=== PATIENT | female | born 1995 | race Caucasian/White ===

== ENCOUNTER 2017-04-01 08:45 | Inpatient (IN) | payer BC, OTHER ==
[~2017-04-01] VITALS: Ht 157.5 cm; Wt 68.0 kg
--- NOTE | 2017-04-02 00:30 | NUR ---
Pre-admission assessment Patient is a 22-year old, female, seen at intake, AAOx4, no SOB and with slight anxiety noted at this time. Discussed with patient admission policies of the unit. Patient is coherent and able to respond to questions appropriately. Pt is ambulatory with steady gait. Vital signs taken and as follows: AT=949/65, P=82, O2 sat on RA=97%, RR=16, T=98. Pt verbalized instructions and teachings regarding disposal of narcotic and other controlled home meds, unit protocols such as taking of vital signs Q4H and handling and disposal of contraband. Will continue with admission upon pts arrival on the unit.
[2017-04-02 00:45] VITALS: BP 111/65
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
[2017-04-02 01:34] LABS: *URINE HCG, QUAL NEGATIVE (NEGATIVE)
[2017-04-02 01:39] LABS: *AMPHETAMINE, URINE NEGATIVE (NEGATIVE); *BARBITURATE, URINE NEGATIVE (NEGATIVE); *CANNABINOID, URINE POSITIVE (NEGATIVE); *COCCAINE, URINE NEGATIVE (NEGATIVE); *OPIATE, URINE POSITIVE (NEGATIVE); *PHENCYCLIDINE SCREEN,URINE NEGATIVE (NEGATIVE)
[2017-04-02] MEDS ORDERED: LOPERAMIDE HCL 2 MG CAPSULE PO PRN ×2 (02:00)
[2017-04-02] MEDS ORDERED: BUPRENORPHINE HCL 2 MG TAB.SUBL SL PRN (02:00)
[2017-04-02] MEDS: HYDROXYZINE PAMOATE 25 MG CAPSULE PO PRN (02:00)
[2017-04-02] MEDS ORDERED: ACETAMINOPHEN 325 MG TABLET PO PRN (02:00)
[2017-04-02] MEDS ORDERED: MAG HYDROX/AL HYDROX/SIMETH 30 ML LIQUID UDC PO PRN (02:00)
[2017-04-02] MEDS ORDERED: diphenhydrAMINE 50 MG CAPSULE PO PRN (02:00)
[2017-04-02] MEDS ORDERED: MIRALAX 17 GM POWD.PACK PO PRN (02:00)
[2017-04-02] MEDS ORDERED: ONDANSETRON ODT 4 MG TAB.RAPDIS SL PRN (02:00)
[2017-04-02] MEDS ORDERED: ONDANSETRON 4 MG/2 ML VIAL IM PRN (02:00)
[2017-04-02] MEDS ORDERED: CLONIDINE HCL 0.1 MG TABLET PO PRN (02:00)
[2017-04-02] MEDS ORDERED: IBUPROFEN 400 MG TABLET PO PRN (02:00)
[2017-04-02] MEDS ORDERED: DICYCLOMINE HCL 20 MG TABLET PO PRN (02:00)
[2017-04-02] MEDS ORDERED: MAGNESIUM HYDROXIDE 30 ML LIQUID UDC PO PRN (02:00)
--- NOTE | 2017-04-02 02:00 | NUR ---
PRN Administration Pt reports abdominal cramping, feeling anxious and requests aid to help her sleep. Vistaril 50mg PRN, Bentyl 20mg PRN and Benadryl 50mg PRN administered. Safety measures in place. Will continue to monitor.
[2017-04-02] MEDS ORDERED: HYDROXYZINE PAMOATE 25 MG CAPSULE ONE ×2 (02:08→02:09)
[2017-04-02] MEDS ORDERED: diphenhydrAMINE 50 MG CAPSULE ONE (02:09)
[2017-04-02] MEDS ORDERED: DICYCLOMINE HCL 20 MG TABLET ONE (02:09)
[2017-04-02] MEDS ORDERED: HYDR50CA PO (02:47)
[2017-04-02] MEDS ORDERED: GABA-536 PO (02:47)
[2017-04-02] MEDS ORDERED: SERT100T PO (02:47)
[2017-04-02] MEDS ORDERED: OXCA600T5 PO (02:47)
[2017-04-02] MEDS ORDERED: QUET300T2 PO (02:47)
--- NOTE | 2017-04-02 03:00 | NUR ---
PRN Reassessment Pt is sleeping, no s/s of acute distress noted, respirations even/unlabored. Safety measures in place. Will continue to monitor.
[2017-04-02 04:00] VITALS: BP 122/74
--- NOTE | 2017-04-02 04:00 | NUR ---
Vital Signs BP 122/74, pulse 87, resp 16, Spo2 99%, temp 98.1, pain 0/10 COWS deferred d/t pt sleeping to assess while pt is awake as ordered. Safety measures in place, will continue to monitor.
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
--- NOTE | 2017-04-02 07:23 | NUR ---
START OF SHIFT NOTE: Received report from curator zoological museum nurse. Pt is a 22 year old female admitted 04-02-17 for Opiate dependence. Pt is currently on prn meds only. Pt is alert and oriented X4. Color good, skin warm and dry. Respirations even and unlabored. Resting in bed at this time. Safety precautions observed. Call light within reach. Will continue to monitor.
[2017-04-02 08:22] VITALS: BP 104/65
[2017-04-02] MEDS ORDERED: TUBERCULIN,PURIF.PROT.DERIV. 5 TU/0.1 ML TEST ID ONE (09:00)
--- NOTE | 2017-04-02 09:00 | NUR ---
TB test administered LFA
[2017-04-02] MEDS ORDERED: IBUPROFEN 600 MG TABLET PO PRN (09:30)
[2017-04-02] MEDS: MULTIVITAMINS,THERAPEUTIC TABLET PO SCH (09:43)
--- NOTE | 2017-04-02 09:48 | NUR ---
VSS COWS 12 Subutex 4mg sl prn given. c/o body aches, sweating, stomach cramps.
--- NOTE | 2017-04-02 10:40 | NUR ---
Pt states feels much improved after Subutex prn. COWS 7
[2017-04-02 12:00] VITALS: BP 99/60
[2017-04-02] MEDS: BUPRENORPHINE HCL 2 MG TAB.SUBL SL SCH ×3 (12:57→20:05)
--- NOTE | 2017-04-02 12:58 | NUR ---
VSS COWS 5 c/o muscle aches, sweating and stomach cramps. Pt started on 5 day Subutex taper.
[2017-04-02] MEDS: GABAPENTIN 400 MG CAPSULE PO SCH ×2 (14:37→20:04)
[2017-04-02 16:30] VITALS: BP 92/60
--- NOTE | 2017-04-02 18:44 | NUR ---
END OF SHIFT NOTE: Report given to cardiac cath lab radiology technologist nurse. Pt is a 22 year old female admitted 04-02-17 for Opiate dependence. Pt started on 5 day Subutex taper. Tolerating well. . Pt is alert and oriented X4. Color good, skin warm and dry. Respirations even and unlabored. Vital signs have remained stable throughout shift. Last COWS 5 @ 1700. Pt received Subutex 4mg sl prn @ 0945. Resting in bed at this time. Safety precautions observed. Call light within reach.
[2017-04-02 20:00] VITALS: BP 118/73
--- NOTE | 2017-04-02 20:00 | NUR ---
Start of Shift Pt is a 22 year old female admitted for Opiate dependence, placed on 5 day Subutex taper. Pt reported using Heroin via IV 1-4g/daily, last intake of 1/4th of a gram on 04/01/2017. Pt also reported use of methamphetamine and Marijuana. PMH: Anxiety, Major depressive disorder, bipolar, PTSD and Chlamydia (at age 16). NKA, regular diet, fall precautions and full code. Upon assessment, pt presents with anxiety, body/joint aches, lower back aches, skin clammy, respirations even/unlabored, denies SOB/chest pain, denies n/v/d, bowel sounds active x4, abdomen soft. Safety measures in place, call light within reach, side rails up x2, bed locked and in low position. Will continue to monitor.
[2017-04-02] MEDS: OXCARBAZEPINE 300 MG TABLET PO SCH (20:04)
[2017-04-02] MEDS: QUETIAPINE FUMARATE 200 MG TABLET PO SCH (20:04)
[2017-04-03] VITALS: BP 99/58
--- NOTE | 2017-04-03 | NUR ---
Vital Signs BP 99/58, pulse 85, resp 16, Spo2 98%, temp 98.1, pain 0/10 COWS deferred d/t pt sleeping to assess while pt is awake as ordered. Safety measures in place, will continue to monitor.
[2017-04-03 04:00] VITALS: BP 98/54
--- NOTE | 2017-04-03 04:00 | NUR ---
Vital Signs BP 98/54, pulse 72, resp 18, Spo2 99%, temp 97.8, pain 0/10 COWS deferred d/t pt sleeping to assess while pt is awake as ordered. Safety measures in place, will continue to monitor.
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
--- NOTE | 2017-04-03 07:30 | NUR ---
START OF SHIFT Pt 22 y/o female admitted for opiate dependence. Pt received in room on bed with eyes closed resting, but easily arousable to name. Pt alert and oriented to name, place, and time. Perrla. Skin warm and slightly moist to touch. Respirations even and unlabored. It was reported that pt slept for 6 hours last night. Bed on lowest position with side rails x2 up for safety. Call light within reach. No distress noted at this time.
[2017-04-03 08:06] VITALS: BP 90/47
[2017-04-03] MEDS: MULTIVITAMINS,THERAPEUTIC TABLET PO SCH (08:54)
[2017-04-03] MEDS: BUPRENORPHINE HCL 2 MG TAB.SUBL SL SCH ×3 (08:54→21:12)
[2017-04-03] MEDS: SERTRALINE HCL 100 MG TABLET PO SCH (08:54)
[2017-04-03] MEDS: OXCARBAZEPINE 300 MG TABLET PO SCH ×2 (08:54→16:57)
[2017-04-03] MEDS: GABAPENTIN 400 MG CAPSULE PO SCH ×3 (08:54→21:12)
[2017-04-03] MEDS: METHOCARBAMOL 750 MG TABLET PO PRN (08:58)
--- NOTE | 2017-04-03 09:00 | NUR ---
PRN Pt with c/o body aches 04/24. Robaxin po prn per MD order given and tolerated well.
--- NOTE | 2017-04-03 10:00 | NUR ---
PRN EVAL Pt observed in bed with eyes closed resting, but easily arousable to name.
[2017-04-03 12:00] VITALS: BP 94/53
--- NOTE | 2017-04-03 12:56 | NUR ---
PRN Pt states feels nauseous. Zofran po prn per MD order given and tolerated well.
[2017-04-03] MEDS: HYDROXYZINE PAMOATE 25 MG CAPSULE PO PRN (12:57)
--- NOTE | 2017-04-03 13:56 | NUR ---
PRN BILLAL Pt states does not feel nauseous at this time.
[2017-04-03] MEDS: BACLOFEN 10 MG TABLET PO SCH ×2 (14:59→21:13)
[2017-04-03] MEDS: DICYCLOMINE HCL 20 MG TABLET PO SCH ×2 (14:59→21:12)
[2017-04-03 16:00] VITALS: BP 117/74
--- NOTE | 2017-04-03 18:25 | NUR ---
END OF SHIFT Pt 22 y/o female admitted for opiate dependence. Pt alert and oriented to name, place, and time. Perrla. Perrla. Skin warm and moist to touch. Respirations even and unlabored. Bilateral hand tremors noted slightly. Pt observed mostly isolative to room throughout the day. Pt was seen by Dr. Peralta today. PT medication compliant and tolerated well. No ASE noted. Bed on lowest position with side rails x2 up for safety. Call light within reach. No distress noted at this time.
[2017-04-03 20:00] VITALS: BP 115/65
--- NOTE | 2017-04-03 20:00 | NUR ---
Start of Shift Pt is a 22 year old female admitted for Opiate dependence, placed on 5 day Subutex taper. Pt reported using Heroin via IV 1-4g/daily, last intake of 1/4th of a gram on 04/01/2017. Pt also reported use of methamphetamine and Marijuana. PMH: Anxiety, Major depressive disorder, bipolar, PTSD and Chlamydia (at age 16). NKA, regular diet, fall precautions and full code. Upon assessment, pt presents with body/joint aches, lower back and lower leg aches, abdominal cramping, skin flushed, respirations even/unlabored, denies SOB/chest pain, denies n/v/d, bowel sounds active x4, abdomen soft. Safety measures in place, call light within reach, side rails up x2, bed locked and in low position. Will continue to monitor.
[2017-04-03] MEDS: QUETIAPINE FUMARATE 200 MG TABLET PO SCH (21:12)
[2017-04-03] MEDS: CLONIDINE HCL 0.1 MG TABLET PO SCH (21:12)
[2017-04-04] VITALS (8 sets, daily range): BP systolic 90–118; BP diastolic 43–66
--- NOTE | 2017-04-04 | NUR ---
Vital Signs BP 106/60, pulse 82, resp 16, SpO2 99%, temp 98.4, no pain 0/10 COWS deferred d/t pt sleeping, to assess while pt is awake as ordered. Safety measures in place. Will continue to monitor.
--- NOTE | 2017-04-04 04:00 | NUR ---
Vital Signs BP 92/54, pulse 58, resp 16, SpO2 99%, temp 97.7, no pain 0/10 COWS deferred d/t pt sleeping, to assess while pt is awake as ordered. Safety measures in place. Will continue to monitor.
--- NOTE | 2017-04-04 07:00 | NUR ---
End of Shift Pt is a 22 year old female admitted for Opiate dependence, placed on 5 day Subutex taper. Pt reported using Heroin via IV 1-4g/daily, last intake of 1/4th of a gram on 04/01/2017. Pt also reported use of methamphetamine and Marijuana. PMH: Anxiety, Major depressive disorder, bipolar, PTSD and Chlamydia (at age 16). NKA, regular diet, fall precautions and full code. During shift, pt presented with body/joint aches, lower back and lower leg aches, abdominal cramping, skin flushed - scheduled taper medications administered during shift, effective in management of s/s of withdrawal, COWS 6 decreased to CIWA 4. Pt slept for 6 hours, intake of 710 ml PO, voids x3 and stool x 0. Safety measures in place, call light within reach, side rails up x2, bed locked and in low position. Endorsed to day shift nurse.
--- NOTE | 2017-04-04 07:30 | NUR ---
START OF SHIFT Pt 22 y/o female admitted for opiate dependence. Pt received in room on bed with eyes closed resting, but easily arousable to name. Pt alert and oriented to name, place, and time. Perrla. Skin warm and slightly moist to touch. Respirations even and unlabored. Bilateral hand tremors noted. It was reported that pt slept for 6 hours last night. Bed on lowest position with side rails x2 up for safety. Call light within reach. No distress noted at this time.
[2017-04-04] MEDS ORDERED: BUPRENORPHINE HCL 2 MG TAB.SUBL SL SCH (09:00)
[2017-04-04] MEDS: MULTIVITAMINS,THERAPEUTIC TABLET PO SCH (09:04)
[2017-04-04] MEDS: SERTRALINE HCL 100 MG TABLET PO SCH (09:04)
[2017-04-04] MEDS: OXCARBAZEPINE 300 MG TABLET PO SCH ×2 (09:04→16:20)
[2017-04-04] MEDS: GABAPENTIN 400 MG CAPSULE PO SCH ×3 (09:04→21:53)
[2017-04-04] MEDS: DICYCLOMINE HCL 20 MG TABLET PO SCH ×3 (09:04→21:53)
[2017-04-04] MEDS: BACLOFEN 10 MG TABLET PO SCH (09:05)
[2017-04-04] MEDS: CLONIDINE HCL 0.1 MG TABLET PO SCH ×3 (09:05→21:53)
[2017-04-04] MEDS ORDERED: METHYL SALICYLATE/MENTHOL CREAM 28 GM TUBE TOP PRN (10:15)
[2017-04-04] MEDS: LIDOCAINE 5% PATCH TD SCH (11:20)
[2017-04-04] MEDS: BACLOFEN 20 MG TABLET PO SCH ×2 (14:17→21:53)
[2017-04-04] MEDS: BUPRENORPHINE HCL 2 MG TAB.SUBL SL SCH ×2 (14:18→21:53)
--- NOTE | 2017-04-04 20:00 | NUR ---
START OF SHIFT NOTE PATIENT ALERT AND ORIENTED X 4. PATIENT WAS IN GROUPS. SHE REPORTS ANXIETY, SWEATING, CHILLS , STUFFY NOSE AND STOMACH CRAMPING. SHE C/O P BACK PAIN 03/24. RECEIVED REPORT FROM DAY SHIFT NURSE. PATIENT IS A 22 YEAR OLD FEMALE, ADMITTED FOR OPIATE DEPENDENCE. PATIENT'S DRUG OF CHOICE ARE HEROIN IV,METH AND MARIJUANA. PATIENT IS ON 5 DAY SUBUTEX TAPER. NO SEIZURE HISTORY. VS STABLE. PATIENT DID NOT REQUIRE ANY PRN MEDICATION. LAST COWS 3. NO SEIZURE HISTORY. SAFETY MEASURES IN PLACE. CALL LIGHT IN REACH. WILL CONTINUE TO MONITOR.
[2017-04-04] MEDS: METHOCARBAMOL 750 MG TABLET PO PRN (21:53)
[2017-04-04] MEDS: QUETIAPINE FUMARATE 200 MG TABLET PO SCH (21:53)
--- NOTE | 2017-04-04 21:53 | NUR ---
PRN ROBAXIN ADMINISTRATION PATIENT C/O 03/24 BACK PAIN . PRN ROBAXIN GIVEN . WILL MONITOR FOR EFFECTIVENESS
--- NOTE | 2017-04-04 22:53 | NUR ---
PRN ROBAXIN RE-ASSESSMENT PATIENT STATES ROBAXIN IS HELPFUL. PAIN LEVEL 2/10 AT THIS TIME.
[2017-04-05] VITALS: BP 103/56
--- NOTE | 2017-04-05 04:00 | NUR ---
COWS/VS PATIENT ASLEEP. COWS UNABLE TO ASSESS. NO S/S OF DISTRESS. RESPIRATION EVEN AND UNLABORED. SAFETY MEASURES IN PLACE. CALL LIGHT IN REACH. WILL CONTINUE TO MONITOR.
--- NOTE | 2017-04-05 07:25 | NUR ---
END OF SHIFT NOTE PATIENT REMAIN ALERT AND ORIENTED X 4. PATIENT ATTENDS GROUPS. SHE REPORTED ANXIETY, SWEATING, CHILLS , STUFFY NOSE AND STOMACH CRAMPING, SHE C/O P BACK PAIN 03/24 BEGINNING OF SHIFT. PATIENT IS A 22 YEAR OLD FEMALE, ADMITTED FOR OPIATE DEPENDENCE. PATIENT'S DRUG OF CHOICE ARE HEROIN IV,METH AND MARIJUANA. PATIENT IS ON 5 DAY SUBUTEX TAPER, TOLERATED WELL AND NO ADVERSE REACTION. PATIENT WAS GIVEN PRN ROBAXIN FOR BACK PAIN. SAFETY MEASURES IN PLACE. CALL LIGHT IN REACH. WILL CONTINUE TO MONITOR. SLEPT 5 HOURS. FLUID INTAKE 1,001 ML. VOIDED X 2. NO BM. LAST COWS 3.
--- NOTE | 2017-04-05 07:30 | NUR ---
START OF SHIFT Pt 22 y/o female admitted for opiate dependence. Pt received in room on bed awake. Pt alert and oriented to name, place, and time. Perrla. Skin warm and slightly moist to touch. Respirations even and unlabored. Bilateral hand tremors noted. It was reported that pt slept for 5 hours last night. Bed on lowest position with side rails x2 up for safety. Call light within reach. No distress noted at this time.
[2017-04-05 08:03] VITALS: BP 94/52
[2017-04-05 08:15] VITALS: BP 97/62
[2017-04-05] MEDS: BACLOFEN 20 MG TABLET PO SCH ×3 (08:23→21:13)
[2017-04-05] MEDS: MULTIVITAMINS,THERAPEUTIC TABLET PO SCH (08:23)
[2017-04-05] MEDS: GABAPENTIN 400 MG CAPSULE PO SCH ×3 (08:23→21:13)
[2017-04-05] MEDS: BUPRENORPHINE HCL 2 MG TAB.SUBL SL SCH ×3 (08:23→21:24)
[2017-04-05] MEDS: SERTRALINE HCL 100 MG TABLET PO SCH (08:23)
[2017-04-05] MEDS: OXCARBAZEPINE 300 MG TABLET PO SCH ×2 (08:23→16:53)
[2017-04-05] MEDS: DICYCLOMINE HCL 20 MG TABLET PO SCH ×3 (08:23→21:18)
[2017-04-05] MEDS: LIDOCAINE 5% PATCH TD SCH (08:23)
[2017-04-05] MEDS: CLONIDINE HCL 0.1 MG TABLET PO SCH ×3 (09:59→21:16)
[2017-04-05 13:22] VITALS: BP 113/60
--- NOTE | 2017-04-05 14:55 | NUR ---
Therapist prompted client about group times. Client stated she will try to attend all groups today.
[2017-04-05 16:00] VITALS: BP 112/62
--- NOTE | 2017-04-05 18:10 | NUR ---
END OF SHIFT Pt 22 y/o female admitted for opiate dependence. Pt alert and oriented to name, place, and time. Perrla. Perrla. Skin warm and moist to touch. Respirations even and unlabored. Bilateral hand tremors noted slightly. Pt observed mostly isolative to room throughout the day. Pt was seen by MD today. Pt medication compliant and tolerated well. No ASE noted. Bed on lowest position with side rails x2 up for safety. Call light within reach. No distress noted at this time.
--- NOTE | 2017-04-05 19:30 | NUR ---
Start of shift: Received patient in bed, awake ,alert and oriented x4. Speech is clear and able to make her needs known. Behavior; calm and cooperative with care. Denies SI/HI/AVH. Compliant with unit rules. Interacted with staff and selective peers. Complained of bilateral hand tremors. Will continue to monitor patient behavior and medication effectiveness.
[2017-04-05 20:00] VITALS: BP 118/72
[2017-04-05] MEDS: QUETIAPINE FUMARATE 200 MG TABLET PO SCH (21:13)
[2017-04-06 00:01] VITALS: BP 95/55
[2017-04-06 04:00] VITALS: BP 88/50
--- NOTE | 2017-04-06 04:25 | NUR ---
Patient asleep. Respiration even and unlabored. No signs of distress. Unable to assess COWS due to difficult to aroused. Will continue to monitor.
--- NOTE | 2017-04-06 05:53 | NUR ---
Patient slept 7 hours and 30 minutes. Compliant with medication and unit rules. No behavior outburst. Interacted well with staff and peers.
[2017-04-06 08:00] VITALS: BP 116/70
--- NOTE | 2017-04-06 08:08 | NUR ---
START OF SHIFT NOTE Received report from night nurse, 22 year old female admitted for Opiate dependence, cont with 5 day Subutex taper. NKA, regular diet, fall precautions and full code. Pt reported PMH: Anxiety, Major depressive disorder, bipolar, PTSD and Chlamydia (at age 16). Received pt alert awake oriented x4. Breathing normal no SOB noted, respiration even non labored. Skin intact warm and dry to touch. Educate pt with current plan of the day and medication regimen with good verbal understanding. All safety measures in place, Call light within reach. Will cont to monitor.
[2017-04-06] MEDS: SERTRALINE HCL 100 MG TABLET PO SCH (08:47)
[2017-04-06] MEDS: CLONIDINE HCL 0.1 MG TABLET PO SCH ×3 (08:47→20:22)
[2017-04-06] MEDS: MULTIVITAMINS,THERAPEUTIC TABLET PO SCH (08:47)
[2017-04-06] MEDS: GABAPENTIN 400 MG CAPSULE PO SCH ×3 (08:47→20:21)
[2017-04-06] MEDS: DICYCLOMINE HCL 20 MG TABLET PO SCH ×3 (08:47→20:22)
[2017-04-06] MEDS: BACLOFEN 20 MG TABLET PO SCH ×3 (08:47→20:21)
[2017-04-06] MEDS: OXCARBAZEPINE 300 MG TABLET PO SCH ×2 (08:47→16:28)
[2017-04-06] MEDS: LIDOCAINE 5% PATCH TD SCH (08:49)
[2017-04-06] MEDS ORDERED: BUPRENORPHINE HCL 2 MG TAB.SUBL SL SCH (09:00)
[2017-04-06 12:00] VITALS: BP 125/80
[2017-04-06 13:07] LABS: *AMPHETAMINE, URINE NEGATIVE (NEGATIVE); *BARBITURATE, URINE NEGATIVE (NEGATIVE); *CANNABINOID, URINE POSITIVE (NEGATIVE); *COCCAINE, URINE NEGATIVE (NEGATIVE); *OPIATE, URINE POSITIVE (NEGATIVE); *PHENCYCLIDINE SCREEN,URINE NEGATIVE (NEGATIVE)
[2017-04-06] MEDS ORDERED: CLON0.1T14 PO (13:47)
[2017-04-06] MEDS ORDERED: ONDA4TAB11 SL (13:47)
[2017-04-06] MEDS ORDERED: METH-406 PO (13:47)
[2017-04-06] MEDS ORDERED: BACL20TA PO (13:47)
[2017-04-06] MEDS ORDERED: DICY20TA28 PO (13:47)
[2017-04-06] MEDS ORDERED: LIDO30AD10 TD (13:47)
[2017-04-06 16:00] VITALS: BP 100/60
--- NOTE | 2017-04-06 18:47 | NUR ---
END OF SHIFT NOTE Gave report to night nurse, 22 year old female admitted for Opiate dependence. NKA, regular diet, fall precautions and full code. Pt reported PMH: Anxiety, Major depressive disorder, bipolar, PTSD and Chlamydia (at age 16). Pt completed her Subutex taper tolerated well. Pt was not given any PRN Meds during shift. Pt compliant with TX and medication regimen. Vital signs remained stable. Pt scheduled for discharge in AM, urine drug screen provided and placed in the chart. Last COWS-1. All safety measures in placer, Call light within reach. Pt endorsed to night nurse in stable condition.
[2017-04-06 20:00] VITALS: BP 103/54
--- NOTE | 2017-04-06 20:00 | NUR ---
Start OF Shift Patient is a 22 year old female admitted for Opiate dependence. NKA, regular diet, fall precautions and full code. Pt reported PMH: Anxiety, Major depressive disorder, bipolar, PTSD and Chlamydia (at age 16). Pt completed her Subutex taper tolerated well. Pt compliant with TX and medication regimen. Vital signs remained stable. Pt scheduled for discharge in AM, urine drug screen provided and placed in the chart. Last COWS-1. All safety measures in placed, Call light within reach. Will continue to monitor.
--- NOTE | 2017-04-06 20:21 | NUR ---
Motrin given Patient c/o toothaches, 03/24 pain. Gave Motrin @2020 for relief, will monitor for effectiveness.
[2017-04-06] MEDS: QUETIAPINE FUMARATE 200 MG TABLET PO SCH (20:22)
[2017-04-07] VITALS: BP 85/50
[2017-04-07 04:00] VITALS: BP 102/56
--- NOTE | 2017-04-07 06:37 | NUR ---
End OF Shift Patient is a 22 year old female admitted for Opiate dependence. NKA, regular diet, fall precautions and full code. Pt reported PMH: Anxiety, Major depressive disorder, bipolar, PTSD and Chlamydia (at age 16). Pt completed her Subutex taper tolerated well. Pt compliant with TX and medication regimen. Pulse ran low during shift, but pt was arouseable. Pt scheduled for discharge today, urine drug screen provided and placed in the chart. Last COWS-0. Gave Motrin @2020 for toothache, med provided relief 4/10 pain level. Pt slept 8 hrs. All safety measures in placed, Call light within reach. Will continue to monitor.
--- NOTE | 2017-04-07 07:41 | NUR ---
START OF SHIFT Received report from night nurse. 22 year old female patient admitted on 04/02/17 for heroin and methamphetamine withdrawals. Pt has completed 5 day Subutex taper and is medically cleared for discharge. Pt did not present with acute s.s of withdrawal at night and most recent COWS at 0400 was 0. PRN Motrin was administered for toothache and effective. Pt slept for 8 hours. Pt remains safe throughout hospitalization. All needs met at this time, safety precautions remain in place, will continue to monitor.
[2017-04-07] MEDS: GABAPENTIN 400 MG CAPSULE PO SCH (09:33)
[2017-04-07] MEDS: DICYCLOMINE HCL 20 MG TABLET PO SCH (09:33)
[2017-04-07] MEDS: CLONIDINE HCL 0.1 MG TABLET PO SCH (09:34)
[2017-04-07] MEDS: LIDOCAINE 5% PATCH TD SCH (09:34)
[2017-04-07] MEDS: MULTIVITAMINS,THERAPEUTIC TABLET PO SCH (09:34)
[2017-04-07] MEDS: OXCARBAZEPINE 300 MG TABLET PO SCH (09:34)
[2017-04-07] MEDS: BACLOFEN 20 MG TABLET PO SCH (09:34)
[2017-04-07] MEDS: SERTRALINE HCL 100 MG TABLET PO SCH (09:34)
[2017-04-07 09:39] VITALS: BP 126/69
--- NOTE | 2017-04-07 10:01 | NUR ---
D/C NOTE Pt is A/O x4. V/S remain WNL. Pt denies SI/HI or hallucinations. Pt shows no s/s of acute withdrawal at this time, and is stable. has medically cleared pt for d/c. Education on Hepatitis C, smoking cessation and medication side effects provided. Pt verbalizes understanding. All pt belongings are in belonging bag, including prescriptions, pt did not have any home medications. Refuses PNU vaccination. Pt is being accompanied by NURSE EDUCATOR at this time to be transported to rehab. All needs met.
== END 2017-04-07 09:55 | disposition other institution (70) | DRG 895 ==
LOC: SRC 04-02 00:10
PROVIDERS: ADMIT Internal Medicine; ATTEND Internal Medicine
PROC: HZ2ZZZZ Detoxification Services for Substance Abuse Treatment (ICD-10-PCS; principal; 2017-04-02)
PROC: HZ41ZZZ Group Counseling for Substance Abuse Treatment, Behavioral (ICD-10-PCS; 2017-04-04)
PROC: HZ31ZZZ Individual Counseling for Substance Abuse Treatment, Behavioral (ICD-10-PCS; 2017-04-05)
DX: F11.23 Opioid dependence with withdrawal (principal); F15.20 Other stimulant dependence, uncomplicated; F17.210 Nicotine dependence, cigarettes, uncomplicated; Z79.899 Other long term (current) drug therapy; Z81.8 Family history of other mental and behavioral disorders; T43.596A Underdosing of other antipsychotics and neuroleptics, initial encounter; Z91.120 Patient's intentional underdosing of medication regimen due to financial hardship; Y92.89 Other specified places as the place of occurrence of the external cause; F31.9 Bipolar disorder, unspecified; F41.9 Anxiety disorder, unspecified; Z91.410 Personal history of adult physical and sexual abuse; G47.00 Insomnia, unspecified; F12.10 Cannabis abuse, uncomplicated; Z59.1 Inadequate housing
CPT/HCPCS: 70030-TC; 80307; 80349; 80361; 84703; 86580; A4663; Q0162; Q0163

== ENCOUNTER 2017-06-04 16:08 | Inpatient (IN) | payer BC, OTHER ==
[~2017-06-04] VITALS: Ht 157.5 cm; Wt 77.6 kg
[~2017-06-04 16:08] MED LIST: BACL20TA PO; CLON0.1T14 PO; DICY20TA28 PO; GABA-536 PO; HYDR50CA PO; LIDO30AD10 TD; METH-406 PO; ONDA4TAB11 SL; OXCA600T5 PO; QUET300T2 PO; SERT100T PO
[2017-06-04] MEDS ORDERED: LOPERAMIDE HCL 2 MG CAPSULE PO PRN ×2 (19:30)
[2017-06-04] MEDS ORDERED: METHOCARBAMOL 750 MG TABLET PO PRN (19:30)
[2017-06-04] MEDS ORDERED: MAG HYDROX/AL HYDROX/SIMETH 30 ML LIQUID UDC PO PRN (19:30)
[2017-06-04] MEDS ORDERED: CLONIDINE HCL 0.1 MG TABLET PO PRN (19:30)
[2017-06-04] MEDS ORDERED: ONDANSETRON ODT 4 MG TAB.RAPDIS SL PRN (19:30)
[2017-06-04] MEDS ORDERED: diphenhydrAMINE 50 MG CAPSULE PO PRN (19:30)
[2017-06-04] MEDS ORDERED: MAGNESIUM HYDROXIDE 30 ML LIQUID UDC PO PRN (19:30)
[2017-06-04] MEDS ORDERED: ONDANSETRON 4 MG/2 ML VIAL IM PRN (19:30)
[2017-06-04] MEDS ORDERED: ACETAMINOPHEN 325 MG TABLET PO PRN (19:30)
[2017-06-04] MEDS ORDERED: HYDROXYZINE PAMOATE 25 MG CAPSULE PO PRN (19:30)
[2017-06-04] MEDS ORDERED: BUPRENORPHINE HCL 2 MG TAB.SUBL SL PRN (19:30)
[2017-06-04] MEDS ORDERED: LORAZEPAM 1 MG TABLET PO PRN ×2 (19:30)
[2017-06-04] MEDS ORDERED: IBUPROFEN 600 MG TABLET PO PRN (19:30)
[2017-06-04] MEDS ORDERED: LORAZEPAM 2 MG/1 ML VIAL IM PRN (19:30)
[2017-06-04] MEDS ORDERED: MIRALAX 17 GM POWD.PACK PO PRN (19:30)
[2017-06-04 19:31] LABS: *URINE HCG, QUAL NEGATIVE (NEGATIVE)
--- NOTE | 2017-06-04 19:45 | NUR ---
Pre-Admission Note: Patient assessed in intake office at 19:45 on 06/04/2017. Patient is ambulatory with steady gait, stable, A&OX4. Patient states that she is here to safely detox from Xanax, heroin, methamphetamine salts and ETOH. VS: 124/81, 93, 98.6, 16, 99% Spo2 on RA. Patient 7/10 sinus congestion pain and headache at this time. Patient reports NKDA/NKFA. Patient instructed on unit protocol of vitals Q4H and COWS/CIWA assessments. Patient verbalized understanding and agreement. Patient also instructed on policy regarding destruction of any controlled substances/prescriptions brought to facility, and handling of all medications. Patient verbalized understanding and agreement. Will complete admission assessment when patient is brought up to unit.
[2017-06-04 19:53] LABS: *AMPHETAMINE, URINE POSITIVE (NEGATIVE); *BARBITURATE, URINE NEGATIVE (NEGATIVE); *CANNABINOID, URINE NEGATIVE (NEGATIVE); *COCCAINE, URINE NEGATIVE (NEGATIVE); *OPIATE, URINE NEGATIVE (NEGATIVE); *PHENCYCLIDINE SCREEN,URINE NEGATIVE (NEGATIVE)
[2017-06-04 20:00] VITALS: BP 124/81
--- NOTE | 2017-06-04 20:00 | NUR ---
ADMISSION NOTE: NEW ADMISSION IS A 22 [facility] FEMALE [facility] AT [facility]00 ON [facility]17; PRE-ADMISSION ASSESSMENT COMPLETED INTAKE OFFICE. HCG NEGATIVE; UDS RESULTED POSITIVE FOR AMPHETAMINES. VS: WNL. COWS:7, CIWA: 4. HEIGHT IS 5'2 AND WEIGHT BY STANDING SCALE IS 171 LBS. PT REPORTS NKDA/NKFA. PT DENIES HAVING PCP. PT ADMITTED UNDER THE CARE OF DR GRANGER. PT REPORTS THE FOLLOWING SUBSTANCE USE: PT REPORTS ACHIEVING 58 DAYS OF SOBRIETY WHILE ATTENDING [facility], AND THEN RELAPSING 7 DAYS AGO. PT USED 2MG XANAX DAILY X 7 DAYS, LAST USE 06/03/17. PT USED 0.5G IV HEROIN DAILY FOR 2 DAYS; LAST USE 06/01/17. PT USED 0.25G IV METHAMPHETAMINE DAILY X 7 DAYS. LAST USE 06/03/17. PT DRANK PINT WHISKEY DAILY X 2 DAYS, LAST USE 05/31/17. PT REPORTS THAT SHE SMOKES 20 CIGARETTES DAILY. WRITTEN SMOKING CESSATION EDUCATION PROVIDED. PT VERBALIZES UNDERSTANDING. PT REPORTS PMHX OF ANXIETY DISORDER, MAJOR DEPRESSIVE DISORDER, BIPOLAR DISORDER, PTSD. PT DENIES A HISTORY OF WITHDRAWAL-INDUCED SEIZURES. . PT IS AMBULATORY WITH STEADY GAIT. PT IS A&OX4. SKIN ASSESSMENT: PT HAS SCATTERED HEALED EXCORIATIONS ON BLE AND BUE, NO OPEN WOUNDS. PT DENIES CURRENT OR HX OF SI/HI. LUNGS ARE CTA THROUGHOUT, RESPIRATIONS ARE EVEN AND UNLABORED. PT DENIES COUGH. HEART SOUNDS REGULAR. BOWEL SOUNDS ACTIVE IN ALL QUADRANTS; PT REPORTS CONSTIPATION WITH LAST BM ON 06/03/17 THAT WAS HARD AND SMALL. ABDOMEN IS SOFT, NON-DISTENDED, NON-TENDER.
[2017-06-04] MEDS: MUPIROCIN 2% OINT 22 GM TUBE TP SCH (21:00)
[2017-06-04] MEDS ORDERED: LORAZEPAM 1 MG TABLET PO SCH (21:00)
[2017-06-04] MEDS: GABAPENTIN 400 MG CAPSULE PO SCH (21:25)
[2017-06-04] MEDS: LIDOCAINE 5% PATCH TD SCH (21:25)
[2017-06-04] MEDS: PRAZOSIN HCL 1 MG CAPSULE PO SCH (21:26)
[2017-06-04] MEDS: DICYCLOMINE HCL 20 MG TABLET PO PRN (21:33)
--- NOTE | 2017-06-04 21:33 | NUR ---
PRN Bentyl: Patient complains of stomach cramps. Administered PRN Bentyl as ordered. Will continue to monitor.
--- NOTE | 2017-06-04 22:30 | NUR ---
PRN Reassessment: Patient denies stomach cramps at this time. PRN Bentyl effective. Will continue to monitor.
[2017-06-04] MEDS ORDERED: HYDR50CA PO (22:34)
[2017-06-04] MEDS ORDERED: SERT50TA PO (22:34)
[2017-06-04] MEDS ORDERED: CLON0.2T PO (22:34)
[2017-06-04] MEDS ORDERED: GABA800T2 PO (22:34)
[2017-06-04] MEDS ORDERED: MIRT15TA PO (22:34)
[2017-06-04] MEDS ORDERED: OXCA300T4 PO (22:34)
[2017-06-04] MEDS ORDERED: QUET100T PO (22:34)
[2017-06-04] MEDS ORDERED: METR500T PO (22:34)
[2017-06-04] MEDS ORDERED: METH-406 PO (22:34)
[2017-06-05] VITALS: BP 129/84
--- NOTE | 2017-06-05 04:00 | NUR ---
Vitals Refused, COWS/CIWA Deferred: Patient refuses 04:00 vital signs assessment. Patient educated on risks and benefits but still refused. COWS and CIWA are deferred for sleep. All safety precautions are in place. Will continue to monitor. Addendum: 06/05/17 at 0408 by YAW GONSALEZ RN Amended: Links added.
--- NOTE | 2017-06-05 07:19 | NUR ---
End of Shift Note: Pt is a 22F admitted to [facility] last night for medically-supervised withdrawal from benzodiazepines, opiates, ETOH, and amphetamines. Pt reported a PMHx of Major Depressive Disorder, Bipolar Disorder, PTSD, and Generalized Anxiety Disorder. Pt reports NKDA/NKFA. Pt is a full code. Pt is on a regular diet. Pt reported achieving 58 days of sobriety, and relapsed 7 days ago. Pt reported taking Xanax 2mg daily x 7 days, using 0.25g IV methamphetamine daily x 7 days, using 0.5g IV heroin x 2 days, and drinking pint whiskey x 2 days. Scheduled medication regime managed s/s of withdrawal this shift, in addition to PRN Bentyl for stomach cramps. Last COWS=6, CIWA=4 at 00:00. V/S stable throughout shift. Total fluid intake this shift: 500 ml; output: urine x 2 and BM x 1. Pt is currently in bed and slept 7 hours this shift. All needs have been attended and met. Pt endorsed to day shift nurse.
[2017-06-05 08:00] VITALS: BP 115/60
--- NOTE | 2017-06-05 08:05 | NUR ---
START OF SHIFT: RECEIVED PT A/O X 4 LAYING IN BED. SHE C/O ANXIETY,RESTLESSNESS,CHILLS,MILD BODY ACHES AND IRRITABILITY. CIWA 5 COWS 9. ATIVAN TAPER IN PROGRESS TO MANAGE S/S OF W/D. ENCOURAGED REST AND FLUIDS TODAY. WILL CONTINUE TO MONITOR AND MANAGE S/S OF W/D. Addendum: 06/05/17 at 1131 by WILLEM ANDREA RN PPD REFUSED. EDUCATED PT ON POTENTIAL CONSEQUENCES. PT EXPRESSED VERBAL UNDERSTANDING OF EDUCATION. MADE AWARE.
[2017-06-05 08:09] LABS: BASOPHILS % (AUTO) 0.3 % (0.0-2.0); EOSINOPHILS # (AUTO) 0.1 K/uL (0.0-0.7); EOSINOPHILS % (AUTO) 0.9 % (0.0-7.0); HEMATOCRIT 40.3 % (37-47); HEMOGLOBIN 13.4 G/DL (12.0-16.0); LYMPHOCYTES # (AUTO) 2.2 K/UL (0.8-4.8); LYMPHOCYTES % (AUTO) 19.6 % (20.5-51.5); MEAN CORPUSCULAR HEMOGLOBIN 30.1 UUG (27.0-31.0); MEAN CORPUSCULAR HGB CONC 33 g/dL (32.0-37.0); MEAN CORPUSCULAR VOLUME 90.9 FL (81.0-99.0); MONOCYTES # (AUTO) 1.1 K/UL (0.1-1.30); MONOCYTES % (AUTO) 9.8 % (0.0-11.0); NEUTROPHILS % (AUTO) 69.4 % (38.5-71.5); PLATELET COUNT (AUTO) 305 K/UL (150-450); RED BLOOD CELL COUNT(AUTO) 4.43 MIL/UL (4.2-5.4); WHITE BLOOD COUNT (AUTO) 11.4 K/UL (4.0-11.2)
[2017-06-05 08:59] LABS: ALANINE AMINOTRANSFERASE 66 U/L (14-59); ALKALINE PHOSPHATASE 128 U/L (50-136); ASPARTATE AMINOTRANSFERASE 37 U/L (15-37); BILIRUBIN,TOTAL 0.3 mg/dL (0.2-1.0); CARBON DIOXIDE 28 mmol/L (21-32); CHLORIDE 105 mmol/L (98-107); CREATININE 0.7 mg/dL (0.6-1.3); GLUCOSE 100 mg/dL (74-106); POTASSIUM 4.1 mmol/L (3.5-5.1); TOTAL PROTEIN, SERUM 7.6 g/dL (6.4-8.2); UREA NITROGEN, BLOOD 17 mg/dL (7-18)
[2017-06-05] MEDS ORDERED: TUBERCULIN,PURIF.PROT.DERIV. 5 TU/0.1 ML TEST ID ONE (09:00)
[2017-06-05 09:01] LABS: ETHANOL < 3 MG/DL (0-0)
[2017-06-05] MEDS: LORAZEPAM 1 MG TABLET PO SCH ×3 (09:11→21:13)
[2017-06-05] MEDS: MULTIVITAMINS,THERAPEUTIC TABLET PO SCH (09:11)
[2017-06-05] MEDS: MUPIROCIN 2% OINT 22 GM TUBE TP SCH ×2 (09:11→21:21)
[2017-06-05] MEDS: GABAPENTIN 400 MG CAPSULE PO SCH ×3 (09:12→21:13)
[2017-06-05] MEDS: LIDOCAINE 5% PATCH TD SCH (09:12)
--- NOTE | 2017-06-05 10:25 | NUR ---
PRN SUBUTEX 4 MG SL GIVEN FOR S/S OF W/D WHICH INCLUDE STOMACH CRAMPS,ANXIETY,CHILLS,BODY ACHES,IRRITABILITY AND RESTLESSNESS. COWS 14. WILL MONITOR EFFECTIVENESS OF PRN MED.
--- NOTE | 2017-06-05 11:05 | NUR ---
SUBUTEX PRN EFFECTIVE. PT STATES SHE FEELS BETTER COWS NOW 6. WILL CONTINUE TO MONITOR AND OFFER SUPPORT.
[2017-06-05 12:00] VITALS: BP 127/78
[2017-06-05] MEDS: BUPRENORPHINE HCL 2 MG TAB.SUBL SL SCH ×2 (14:30→21:12)
[2017-06-05] MEDS: BACLOFEN 10 MG TABLET PO SCH ×2 (14:30→21:14)
[2017-06-05 16:00] VITALS: BP 130/77
[2017-06-05] MEDS: OXCARBAZEPINE 300 MG TABLET PO SCH (16:51)
--- NOTE | 2017-06-05 18:45 | NUR ---
END OF SHIFT: PT STARTED ON MODIFIED ATIVAN/SUBUTEX TAPER. SHE IS COMPLIANT WITH MEDS. PSYCH MD ASSESSED PT AND STARTED HER ON HER HOME PSYCHOTROPICS.LAST COWS 5 CIWA 7.SHE WAS EMOTIONAL TODAY AND HAD SEVERAL OUTBURSTS OF CRYING. SHE STATES SHE JUST FEELS SCARED ABOUT THE FUTURE. ENCOURAGED PT TO EXPRESS FEELINGS. ENCOURAGED PT TO STAY IN THE PRESENT AND INFORMED HER THAT THE CLINICAL THERAPISTS HAVE AN OPEN DOOR POLICY. SHE INTERACTS WITH [employer] AND ATTENDED SOME GROUPS. NO PRNS GIVEN THIS SHIFT. WILL PASS REPORT TO ONCOMING NURSE.
[2017-06-05 20:00] VITALS: BP 124/78
--- NOTE | 2017-06-05 20:00 | NUR ---
Start of Shift Pt is a 22 year old female admitted for Benzo/Opiate dependence, placed on 4 day Subutex and 4 day Ativan taper. Pt reported using Xanax 2mg/daily, Heroin 0.5g/daily, Whiskey 0.5pint/daily and Meth 0.25g/daily. PMH: Major depression disorder, bipolar disorder, anxiety and PTSD. NKA, regular diet, fall/seizure precautions and full code. Upon assessment, Pt presents with anxiety, is in emotional distress, skin flushed, reports body/joint aches, chills, skin flushed/clammy, Respirations even/unlabored, denies SOB/chest pain, denies N/V/D, medications due, Safety measures in place, call light within reach, side rails up x2, bed locked and in low position. Will continue to monitor.
[2017-06-05] MEDS ORDERED: QUETIAPINE FUMARATE 100 MG TABLET PO SCH (21:00)
[2017-06-05] MEDS: PRAZOSIN HCL 1 MG CAPSULE PO SCH (21:14)
[2017-06-05] MEDS: MIRTAZAPINE 15 MG TABLET PO SCH (21:14)
[2017-06-05] MEDS: CLONIDINE HCL 0.1 MG TABLET PO SCH (21:14)
[2017-06-05] MEDS: METRONIDAZOLE 500 MG PO SCH (21:21)
[2017-06-06] VITALS (7 sets, daily range): BP systolic 100–146; BP diastolic 60–87
--- NOTE | 2017-06-06 | NUR ---
Vital Signs BP 103/79, pulse 81, resp 20, SpO2 100% room air, temp 98, PA 0/10 COWA/CIWA deferred due to pt sleeping, to assess while pt is awake as ordered. Safety measures in place, will continue to monitor
--- NOTE | 2017-06-06 04:00 | NUR ---
Vital Signs BP 112/74, pulse 86, resp 18, SpO2 99% room air, temp 98.3, PA 0/10 COWS/CIWA deferred due to pt sleeping, to assess while pt is awake as ordered. Safety measures in place, will continue to monitor
--- NOTE | 2017-06-06 07:00 | NUR ---
End of Shift Pt is a 22 year old female admitted for Benzo/Opiate dependence, placed on 4 day Subutex and 4 day Ativan taper. Pt reported using Xanax 2mg/daily, Heroin 0.5g/daily, Whiskey 0.5pint/daily and Meth 0.25g/daily. PMH: Major depression disorder, bipolar disorder, anxiety and PTSD. Pt denies NKDA, regular diet, fall/seizure precautions and full code. During shift, Pt presented with anxiety, was in emotional distress, skin flushed, reports body/joint aches, chills, skin clammy scheduled taper medications administered, latest CIWA 8 and COWS 7. No PRN medications administered. Pt found sleeping on toilet twice, pt was helped to bed - monitor for safety. Pt slept for 6 hours, intake of 710 ml PO, voids x2 and stool x1. Safety measures in place, call light within reach, side rails up x2, bed locked and in low position. Endorsed to day shift nurse.
--- NOTE | 2017-06-06 07:55 | NUR ---
START OF SHIFT: RECEIVED PT A/O X 4 LAYING IN BED. SHE PRESENTS LETHARGIC WITH SLURRED SPEECH. PILE OPERATOR REPORTED PT FALLING ASLEEP WHILE SITTING ON THE TOILET THIS AM AND BEACH EXPERT REPORTED THIS X 2. PILE OPERATOR ALSO REPORTED PT HAS AN UNSTEADY GAIT. PT PLACE ON 1:1 SITTER FOR SAFETY. MODIFIED ATIVAN TAPER ORDERED BUT WILL HOLD OFF ON MED ADMINISTRATION UNTIL CLOSER TO 10 AM AND REASSESS. UNABLE TO ASSESS CIWA AND COWS AT THIS TIME PT FALLS ASLEEP ON ASSESSMENT. WILL CONTINUE TO MONITOR AND PROVIDE SAFE AND SUPPORTIVE ENVIRONMENT.
[2017-06-06 08:10] LABS: HEPATITIS B SURFACE AG Negative (Negative)
[2017-06-06] MEDS: CLONIDINE HCL 0.1 MG TABLET PO SCH ×3 (09:00→21:59)
[2017-06-06] MEDS ORDERED: BUPRENORPHINE HCL 2 MG TAB.SUBL SL SCH (09:00)
[2017-06-06] MEDS: MULTIVITAMINS,THERAPEUTIC TABLET PO SCH (09:38)
[2017-06-06] MEDS: BACLOFEN 10 MG TABLET PO SCH (09:38)
[2017-06-06] MEDS: SERTRALINE HCL 100 MG TABLET PO SCH (09:38)
[2017-06-06] MEDS: OXCARBAZEPINE 300 MG TABLET PO SCH ×2 (09:38→17:47)
[2017-06-06] MEDS: METRONIDAZOLE 500 MG PO SCH ×2 (09:38→22:00)
[2017-06-06] MEDS: LIDOCAINE 5% PATCH TD SCH (09:39)
[2017-06-06] MEDS: MUPIROCIN 2% OINT 22 GM TUBE TP SCH ×2 (09:40→22:00)
--- NOTE | 2017-06-06 09:40 | NUR ---
ADMINISTERED ALL MEDS EXCEPT ATIVAN,CLONIDINE AND GABAPENTIN. MADE AWARE. WILL ADMINISTER REMAINING MEDS WHEN PT RETURN FROM [facility]. COWS 5 CIWA 2 LATE ADMINISTRATION OKAYED BY . WILL CONTINUE TO MONITOR AND PROVIDE SUPPORT. 1:1 CONTINUE FOR SAFETY.
[2017-06-06] MEDS: LORAZEPAM 1 MG TABLET PO SCH ×2 (10:47→22:00)
[2017-06-06] MEDS: GABAPENTIN 400 MG CAPSULE PO SCH ×3 (10:48→21:58)
[2017-06-06] MEDS ORDERED: QUETIAPINE FUMARATE 100 MG TABLET PO PRN ×2 (11:45)
[2017-06-06] MEDS ORDERED: QUETIAPINE FUMARATE 25 MG TABLET PO PRN (12:00)
[2017-06-06] MEDS ORDERED: BENZOCAINE/MENTH/CETYLPYRD LOZENGE MM PRN (12:45)
--- NOTE | 2017-06-06 13:00 | NUR ---
COWS AND CIWA DEFERRED.PT IS ASLEEP. CALL VICTORIA IN REACH. BED LOCKED AND LOW. SITTER AT BEDSIDE.
[2017-06-06] MEDS: BACLOFEN 20 MG TABLET PO SCH ×2 (15:00→21:58)
[2017-06-06] MEDS: BUPRENORPHINE HCL 2 MG TAB.SUBL SL SCH ×2 (15:00→21:59)
--- NOTE | 2017-06-06 16:00 | NUR ---
COWS AND CIWA DEFERRED. PT IS ASLEEP. 1500 MEDS HELD. RESPIRATIONS EVEN AND UNLABORED. CALL VICTORIA IN REACH. BED LOCKED AND LOW. SITTER AT BEDSIDE FOR SAFETY,
--- NOTE | 2017-06-06 18:30 | NUR ---
END OF SHIFT: PT CONTINUES ON MODIFIED ATIVAN/SUBUTEX TAPER. PT WAS PLACED 1:1 SITTER FOR SAFETY FOR UNSTEADY GAIT AND LETHARGY.1200 AND 1600 COWS AND CIWA DEFERRED PT WAS ASLEEP. SHE SLEPT MOST OF SHIFT TODAY AND 1500 MEDS HELD. PSYCH ADJUSTED SEROQUEL DOSE BY LOWERING IT AND MAKING IT PRN. WILL PASS SHIFT REPORT TO ONCOMING NURSE.
--- NOTE | 2017-06-06 19:15 | NUR ---
Start of Shift Note: Patient is a 22 y/o female admitted on 06/04/17 for ETOH, Benzo and Opiate dependence. Patient has PMHx: Major Depressive disorder, Bipolar disorder, Anxiety and PTSD. Pt reported using Xanax 2mg/daily, Heroin 0.5g/daily, Whiskey 0.5pint/daily and Meth 0.25g/daily. PMH: Major depression disorder, bipolar disorder, anxiety and PTSD. Patient is on a regular diet with no known food and drug allergies. Full Code status. Fall & Seizure precaution noted. Last COWS 5 CIWA 2 noted. No PRN medications given during day shift. Patient is on a 1:1 supervision for safety precautions. Patient is alert & oriented x4. Patient is ambulatory with a steady gait. Upon assessment, pt presented with nausea with no episode of vomiting, stomach cramps, sweating, chills, 8/10 generalized body aches, mild headache, & runny nose. Pt appears anxious. Patient denies any hallucinations. Safety measures in place. Bed locked in lowest position. Both side rails up. Call light within reach. Will continue to monitor patient.
[2017-06-06] MEDS: MIRTAZAPINE 15 MG TABLET PO SCH (21:59)
[2017-06-07 04:00] VITALS: BP 111/68
[2017-06-07 06:57] LABS: BASOPHILS % (AUTO) 0.2 % (0.0-2.0); EOSINOPHILS # (AUTO) 0.1 K/uL (0.0-0.7); EOSINOPHILS % (AUTO) 0.5 % (0.0-7.0); HEMATOCRIT 37.6 % (31.2-41.9); HEMOGLOBIN 13.3 g/dL (10.9-14.3); LYMPHOCYTES # (AUTO) 1.7 K/uL (20.0-40.0); LYMPHOCYTES % (AUTO) 16.3 % (20.5-51.5); MEAN CORPUSCULAR HEMOGLOBIN 31.9 uug (24.7-32.8); MEAN CORPUSCULAR HGB CONC 35 g/dL (32.3-35.6); MEAN CORPUSCULAR VOLUME 90.2 fL (75.5-95.3); MONOCYTES # (AUTO) 0.9 K/uL (2.0-10.0); MONOCYTES % (AUTO) 8.7 % (0.0-11.0); NEUTROPHILS # (AUTO) 7.9 K/uL (1.8-8.9); NEUTROPHILS % (AUTO) 74.3 % (38.5-71.5); PLATELET COUNT (AUTO) 280 K/uL (179-408); RED BLOOD CELL COUNT(AUTO) 4.17 MIL/uL (3.63-4.92); WHITE BLOOD COUNT (AUTO) 10.6 K/uL (3.8-11.8)
--- NOTE | 2017-06-07 07:06 | NUR ---
End of Shift Note: Pt had an uneventful night. Pt continues on her Subutex and Ativan taper and has been tolerating well. Last COWS 6 CIWA 4 @ 2300. Patient continues on a 1:1 supervision for safety. Patient remained compliant with medications and treatment. Encouraged pt to attend groups and activities to develop coping skills to maintain sobriety. Patient is alert & oriented x4. No s/s of distress noted. No PRN medications given during my shift. Patient remains stable and vitals WNL. Pt slept for a total of 6 hours. Consumed 355 of fluids. Voided 2x with no bowel movement. Encourage pt to increase fluid intake. Will endorse pt to day shift nurse.
[2017-06-07 07:11] LABS: CREATININE 0.8 mg/dL (0.6-1.3); PHOSPHOROUS 2.9 mg/dL (2.5-4.9); POTASSIUM 4.6 mmol/L (3.5-5.1)
--- NOTE | 2017-06-07 07:30 | NUR ---
START OF SHIFT NOTE Pt is a 22 yr old female, pt was admitted on 06/04/17 for Benzo/ETOH/Opiate dependence and is on 4 day Ativan and 4 day Subutex taper as ordered. Medication kristy well. Received report from fast food shift lead nurse. Pt remains on 1:1 for safety precautions. Pt slept for 6 hrs during the night. Last COWS score was 6 CIWA score was 4 2300. No PRN's were given during the night. Pt remains in bed, asleep with respirations even and unlabored. RR is 16. No acute distress noted. Skin is warm and dry to touch. Safety precautions observed. Bed kept in low position and locked with side rails up x2. Call light is within reach. Will continue to monitor.
[2017-06-07 08:00] VITALS: BP 134/77
[2017-06-07] MEDS: LIDOCAINE 5% PATCH TD SCH (08:47)
[2017-06-07] MEDS: BUPRENORPHINE HCL 2 MG TAB.SUBL SL SCH ×3 (08:48→20:41)
[2017-06-07] MEDS: METRONIDAZOLE 500 MG PO SCH ×2 (08:48→20:40)
[2017-06-07] MEDS: SERTRALINE HCL 100 MG TABLET PO SCH (08:48)
[2017-06-07] MEDS: OXCARBAZEPINE 300 MG TABLET PO SCH ×2 (08:48→17:00)
[2017-06-07] MEDS: MUPIROCIN 2% OINT 22 GM TUBE TP SCH ×2 (08:48→20:46)
[2017-06-07] MEDS: MULTIVITAMINS,THERAPEUTIC TABLET PO SCH (08:48)
[2017-06-07] MEDS: BACLOFEN 20 MG TABLET PO SCH ×3 (08:49→20:41)
[2017-06-07] MEDS: CLONIDINE HCL 0.1 MG TABLET PO SCH ×3 (08:49→20:41)
[2017-06-07] MEDS ORDERED: LORAZEPAM 1 MG TABLET PO SCH (09:00)
[2017-06-07] MEDS ORDERED: BUPRENORPHINE HCL 2 MG TAB.SUBL SL SCH (09:00)
[2017-06-07] MEDS: GABAPENTIN 400 MG CAPSULE PO SCH ×3 (09:45→20:41)
[2017-06-07 12:00] VITALS: BP 120/67
[2017-06-07] MEDS: DICYCLOMINE HCL 20 MG TABLET PO PRN ×2 (14:47→20:40)
--- NOTE | 2017-06-07 14:47 | NUR ---
PRN GIVEN Pt c/o abdominal cramping. Bentyl 20mg PO PRN was given as ordered. Medication kristy well. Encouraged increase fluid intake. Will continue to monitor.
--- NOTE | 2017-06-07 15:47 | NUR ---
PRN RE-ASSESSMENT Bentyl PRN was effective. Pt denies any abdominal cramping. Encouraged increase fluid intake.
[2017-06-07 16:00] VITALS: BP 95/61
--- NOTE | 2017-06-07 16:00 | NUR ---
CIWA AND COWS ASSESSMENT DEFERRED Pt is asleep at this time and is unable to wake up. pt is arousable to touch. RR is 16. VS are WNL. Safety precautions observed. Will continue to monitor. Addendum: 06/07/17 at 1736 by MANUELA MCCORD LVN Amended: Links added.
--- NOTE | 2017-06-07 17:04 | NUR ---
MEDICATION HELD Trileptal 300mg PO was held at 1700 due to pt is too sedative. Respirations even and unlabored. VS are WNL. Safety precautions observed. Will continue to monitor.
--- NOTE | 2017-06-07 18:57 | NUR ---
END OF SHIFT Pt is a 22 yr old female, pt was admitted on 06/04/17 for Benzo/ETOH/Opiate dependence and is on 4 day Ativan and 4 day Subutex taper as ordered. Medication kristy well. Pt has been cooperative with medication regimen and plan of care. Pt did not attended group sessions due to pt was too sedative in the afternoon. 1:1 sitter was removed per MD. Pt received Benytl PRN at 1447. Medication was effective. Pt is in stable condition. Skin is warm and dry to touch. Safety precautions observed. Bed kept in low position and locked with side rails up x2. Call light is within reach.
--- NOTE | 2017-06-07 19:15 | NUR ---
Start of Shift Note: Patient is a 22 y/o female admitted on 06/04/17 for ETOH, Benzo and Opiate dependence. Patient has PMHx: Major Depressive disorder, Bipolar disorder, Anxiety and PTSD. Pt reported using Xanax 2mg/daily, Heroin 0.5g/daily, Whiskey 0.5pint/daily and Meth 0.25g/daily. PMH: Major depression disorder, bipolar disorder, anxiety and PTSD. Patient is on a regular diet with no known food and drug allergies. Full Code status. Fall & Seizure precaution noted. Last COWS 6 CIWA 5 noted. Pt was given PRN Bentyl during day shift and per AM nurse medication was effective. 1:1 supervision was discontinued. Patient is ambulatory with a steady gait. Patient remains alert & oriented x4. Upon assessment, pt presented with complains of stomach cramps, sweating, chills, 6/10 generalized body aches, & moderate headache. Patient denies any hallucinations. Safety measures in place. Bed locked in lowest position. Both side rails up. Call light within reach. Will continue to monitor patient.
[2017-06-07] MEDS ORDERED: BACL20TA PO (19:50)
[2017-06-07] MEDS ORDERED: CLON0.1T14 PO (19:50)
[2017-06-07] MEDS ORDERED: GABA-536 PO (19:50)
[2017-06-07] MEDS ORDERED: DICY20TA28 PO (19:50)
[2017-06-07] MEDS ORDERED: IBUP-1955 PO (19:50)
[2017-06-07] MEDS ORDERED: LIDO30AD10 TD (19:50)
[2017-06-07] MEDS ORDERED: HYDR-3895 PO (19:50)
[2017-06-07 20:00] VITALS: BP 114/69
--- NOTE | 2017-06-07 20:40 | NUR ---
PRN Bentyl Patient complains of stomach cramps. No nausea/vomiting noted. PRN Bentyl administered as ordered. Will monitor for effectiveness of medication.
[2017-06-07] MEDS: MIRTAZAPINE 15 MG TABLET PO SCH (20:41)
--- NOTE | 2017-06-07 21:40 | NUR ---
PRN Reassessment Patient verbalized relief from stomach cramps after medication was administered.
[2017-06-08] VITALS: BP 102/61
[2017-06-08 04:00] VITALS: BP 105/52
--- NOTE | 2017-06-08 07:11 | NUR ---
End of Shift Note: Pt had an uneventful night. Pt continues on her Subutex and Ativan taper and has been tolerating well. Patient was given PRN Bentyl @ 2039 and was effective. Taper medications were effective in decreasing COWS scores from 8 to 6 and Ciwa 7 to 3. Patient remained compliant with medications and treatment. Patient is alert & oriented x4. No s/s of distress noted. Patient remains stable and vitals WNL. Pt slept for a total of 8 hours. Consumed 1682ml of fluids. Voided 1x with no bowel movement. Encourage pt to increase fluid intake. Will endorse pt to day shift nurse.
--- NOTE | 2017-06-08 07:30 | NUR ---
START OF SHIFT Pt is a 22 yr old female, pt was admitted on 06/04/17 for Benzo/ETOH/Opiate dependence and is on 4 day Ativan and 4 day Subutex taper as ordered. Medication kristy well. Received report from shift commander nurse. Pt slept for 8 hrs during the night. Last COWS score was 6 and CIWA score was 3 0300. Bentyl PRN was given during the night. Pt is currently in bed, asleep with respirations even and unlabored. RR is 16. No acute distress noted. Skin is warm and dry to touch. Safety precautions observed. Bed kept in low position and locked with side rails up x2. Call light is within reach. Will continue to monitor.
[2017-06-08 08:00] VITALS: BP 120/66
[2017-06-08] MEDS ORDERED: BUPRENORPHINE HCL 2 MG TAB.SUBL SL SCH (09:00)
[2017-06-08] MEDS: LIDOCAINE 5% PATCH TD SCH (09:33)
[2017-06-08] MEDS: MUPIROCIN 2% OINT 22 GM TUBE TP SCH ×2 (09:34→21:50)
[2017-06-08] MEDS: SERTRALINE HCL 100 MG TABLET PO SCH (09:34)
[2017-06-08] MEDS: BACLOFEN 20 MG TABLET PO SCH ×3 (09:34→21:49)
[2017-06-08] MEDS: GABAPENTIN 400 MG CAPSULE PO SCH ×3 (09:34→21:49)
[2017-06-08] MEDS: METRONIDAZOLE 500 MG TABLET PO SCH ×2 (09:34→21:49)
[2017-06-08] MEDS: MULTIVITAMINS,THERAPEUTIC TABLET PO SCH (09:34)
[2017-06-08] MEDS: OXCARBAZEPINE 300 MG TABLET PO SCH ×3 (09:34→17:56)
[2017-06-08] MEDS: CLONIDINE HCL 0.1 MG TABLET PO SCH ×3 (09:35→21:49)
[2017-06-08 12:00] VITALS: BP 108/59
[2017-06-08 16:00] VITALS: BP 112/61
--- NOTE | 2017-06-08 16:09 | NUR ---
MEDICATION HELD Clonidine 0.1mg, Baclofen 20mg, and Neurontin 800mg PO was held due to pt is too sedative. Pt is in bed sleeping with respirations even and unlabored. RR at 18 Safety precautions observed. Will continue to monitor.
--- NOTE | 2017-06-08 19:05 | NUR ---
END OF SHIFT Pt is a 22 yr old female, pt was admitted on 06/04/17 for Benzo/ETOH/Opiate dependence and completed 4 day Ativan and 4 day Subutex taper as ordered. Medication kristy well. Pt has been cooperative with medication regimen and plan of care. Pt did not attended any group sessions due to pt was too sedative. Clonidine, Baclofen and Neurontin was held at 1500 due to pt was too sedative. Pt is to be discharged tomorrow on 06/09/17. Pt is in stable condition. Last COWS score was 3, CIWA score was 2 at 1600. Skin is warm and dry to touch. No tremor seen or felt. Pt denies any n/v. Safety precautions observed. Bed kept in low position and locked with side rails up x2. Call light is within reach.
[2017-06-08 20:00] VITALS: BP 108/61
--- NOTE | 2017-06-08 20:00 | NUR ---
START OF SHIFT NOTE E RECEIVED REPORT FROM DAY SHIFT NURSE. PATIENT IS A 22 YEAR OLD FEMALE , ADMITTED FOR BENZO/METH/ETOH/METH DEPENDENCE.PATIENT COMPLETED 4 DAY SUBUTEX AND 4 DAY ATIVAN TAPER. PATIENT IS MEDICALLY CLEARED TO BE DISCHARGE TOMORROW. PATIENT REPORTS NO SEIZURE HISTORY. SKIN INTACT. PATIENT IS HEP B AND C POSITIVE, DR. GRANGER AWARE. PER DAY SHIFT NURSE, PATIENT'S CLONIDINE,BACLOFEN AND NEURONTIN WAS HELD DUE TO PATIENT SEDATED. VS STABLE. PATIENT DID NOT REQUIRE ANY PRN MEDICATION. PATIENT IN HER ROOM. ALERT AND ORIENTED X 4. RESPIRATION EVEN AND UNLABORED. PATIENT REPORTS ANXIETY, ABDOMINAL CRAMPING , NO N/V/D AND GENERALIZED BODY ACHES 8/10. RELAXATION TECHIQUE PROVIDED AND POSITIVE ENCOURAGMENT GIVEN. ON FALL/SEIZURE PRECAUTION. SAFETY MEASURES IN PLACE. CALL LIGHT IN REACH. WILL CONTINUE TO MONITOR.
[2017-06-08] MEDS: MIRTAZAPINE 15 MG TABLET PO SCH (21:49)
[2017-06-08] MEDS: DICYCLOMINE HCL 20 MG TABLET PO PRN (21:57)
--- NOTE | 2017-06-08 21:57 | NUR ---
PRN BENTYL AND ROBAXIN ADMINISTRATION PATIENT C/O ABDOMINAL CRAMPING AND GENERALIZED BODY ACHES 04/24. PRN ROBAXIN AND BENTYL GIVEN. WILL MONITOR FOR EFFECTIVENESS
--- NOTE | 2017-06-08 22:57 | NUR ---
ROSIE NEGRETE AND [place] RE-ASSESSMENT PATIENT STATES SHE FEELS MUCH BETTER. PAIN LEVEL 2/10 AT THIS TIME AND TOLERABLE.
--- NOTE | 2017-06-09 | NUR ---
COWS/CIWA/VS PATIENT SLEEPING. VS REFUSED. COWS AND CIWA DEFERRED. RESPIRATION EVEN AND UNLABORED. RR 15. SAFETY MEASURES IN PLACE. CALL LIGHT IN REACH. WILL CONTINUE TO MONITOR.
--- NOTE | 2017-06-09 04:00 | NUR ---
COWS/CIWA/VS PATIENT SLEEPING. VS REFUSED. COWS AND CIWA DEFERRED. RESPIRATION EVEN AND UNLABORED. RR 14. SAFETY MEASURES IN PLACE. CALL LIGHT IN REACH. WILL CONTINUE TO MONITOR.
--- NOTE | 2017-06-09 07:02 | NUR ---
ENF OF SHIFT PATIENT IS A 22 YEAR OLD FEMALE , ADMITTED FOR BENZO/METH/ETOH/METH DEPENDENCE.PATIENT COMPLETED 4 DAY SUBUTEX AND 4 DAY ATIVAN TAPER. PATIENT IS MEDICALLY CLEARED TO BE DISCHARGE TODAY. PATIENT REPORTS NO SEIZURE HISTORY. SKIN INTACT. PATIENT IS HEP B AND C POSITIVE, DR. GRANGER AWARE. PATIENT REMAIN ALERT AND ORIENTED X 4. RESPIRATION EVEN AND UNLABORED. PATIENT REPORTED ANXIETY, ABDOMINAL CRAMPING , NO N/V/D AND GENERALIZED BODY ACHES 8/10. RELAXATION TECHNIQUE PROVIDED AND POSITIVE ENCOURAGEMENT GIVEN.PATIENT WAS GIVEN PRN ROBAXIN FOR GENERALIZED BODY ACHES AND BENTYL FOR ABDOMINAL CRAMPING . PATIENT COMPLIANT WITH MEDICATIONS AND TREATMENT PLAN. ON FALL/SEIZURE PRECAUTION. SAFETY MEASURES IN PLACE. CALL LIGHT IN REACH. WILL CONTINUE TO MONITOR. SLEPT 6 HOURS. FLUID INTAKE 1,264 ML. VOIDED X 3.NO BM. LAST COWS4 AND CIWA 2.
--- NOTE | 2017-06-09 07:10 | NUR ---
START OF SHIFT Pt is a 22 yr old female, pt was admitted on 06/04/17 for Benzo/ETOH/Opiate dependence and completed 4 day Ativan and 4 day Subutex taper as ordered. Received report from night order selector nurse. Pt slept for 6 hrs during the night. Last COWS score was 4 and CIWA score was 2 at 1999 . Bentyl PRN was given during the night. Pt is currently in bed, asleep with respirations even and unlabored. RR is 16. No acute distress noted. Skin is warm and dry to touch. Pt is to be discharged today. Safety precautions observed. Bed kept in low position and locked with side rails up x2. Call light is within reach. Will continue to monitor.
[2017-06-09 08:00] VITALS: BP 101/55
[2017-06-09] MEDS: GABAPENTIN 400 MG CAPSULE PO SCH (09:12)
[2017-06-09] MEDS: BACLOFEN 20 MG TABLET PO SCH (09:12)
[2017-06-09] MEDS: OXCARBAZEPINE 300 MG TABLET PO SCH (09:12)
[2017-06-09] MEDS: MULTIVITAMINS,THERAPEUTIC TABLET PO SCH (09:12)
[2017-06-09] MEDS: LIDOCAINE 5% PATCH TD SCH (09:13)
[2017-06-09] MEDS: CLONIDINE HCL 0.1 MG TABLET PO SCH (09:13)
[2017-06-09] MEDS: SERTRALINE HCL 100 MG TABLET PO SCH (09:13)
[2017-06-09] MEDS: METRONIDAZOLE 500 MG TABLET PO SCH (09:13)
[2017-06-09] MEDS: MUPIROCIN 2% OINT 22 GM TUBE TP SCH (09:16)
[2017-06-09 12:00] VITALS: BP 106/60
--- NOTE | 2017-06-09 13:40 | NUR ---
DISCHARGE NOTE Pt is a 22 yr old female, pt was admitted on 06/04/17 for Benzo/ETOH/Opiate dependence and HAS completed 4 day Ativan and 4 day Subutex taper as ordered. Pt has been cooperative with medication regimen and plan of care. Pt was educated on discharge summary and prescription. Pt was able to verbalize understanding. Pt was discharged to [facility] via private car. Pt left the unit at 1330 in stable condition with all belongings, medications and valuables.
== END 2017-06-09 13:30 | disposition other institution (70) | DRG 895 ==
LOC: SRC 18:30
PROVIDERS: ADMIT Internal Medicine; ATTEND Internal Medicine
PROC: HZ2ZZZZ Detoxification Services for Substance Abuse Treatment (ICD-10-PCS; principal; 2017-06-04)
PROC: HZ31ZZZ Individual Counseling for Substance Abuse Treatment, Behavioral (ICD-10-PCS; 2017-06-06)
DX: F11.23 Opioid dependence with withdrawal (principal); F31.64 Bipolar disorder, current episode mixed, severe, with psychotic features; I15.9 Secondary hypertension, unspecified; F15.220 Other stimulant dependence with intoxication, uncomplicated; F13.230 Sedative, hypnotic or anxiolytic dependence with withdrawal, uncomplicated; Z81.8 Family history of other mental and behavioral disorders; Z81.1 Family history of alcohol abuse and dependence; Z81.3 Family history of other psychoactive substance abuse and dependence; Z80.9 Family history of malignant neoplasm, unspecified; Z59.1 Inadequate housing; N76.0 Acute vaginitis; F12.20 Cannabis dependence, uncomplicated; G89.29 Other chronic pain; F17.210 Nicotine dependence, cigarettes, uncomplicated; F15.10 Other stimulant abuse, uncomplicated; S60.922S Unspecified superficial injury of left hand, sequela; S60.921S Unspecified superficial injury of right hand, sequela; L08.9 Local infection of the skin and subcutaneous tissue, unspecified; Y33.XXXS Other specified events, undetermined intent, sequela; D72.823 Leukemoid reaction; B19.20 Unspecified viral hepatitis C without hepatic coma; F43.10 Post-traumatic stress disorder, unspecified
CPT/HCPCS: 36415; 80307; 80324; 83735; 84100; 84703; 85025; 86592; 86705; 86803; 87340; 87806; A4663; G0480